=== PATIENT | female | born 1955 | race Caucasian/White ===

== ENCOUNTER 2017-04-01 14:20 | Emergency (ER) | payer SELFPAY ==
[2017-04-01 14:28] VITALS: BP 159/101; BMI 36.5
[2017-04-01] MEDS ORDERED: ZOFRAN INJ 4 MG VIAL ONE (15:42)
[2017-04-01] MEDS ORDERED: ZOFRAN INJ 4 MG VIAL IVP ONE (15:51)
[2017-04-01] MEDS ORDERED: LEVSIN/MAALOX/LIDOC VISC PO ONE (15:51)
[2017-04-01] MEDS ORDERED: LEVSIN/MAALOX/LIDOC VISC ONE (15:52)
--- NOTE | 2017-04-01 15:54 | DR.GENAD ---
HPI - PCP Primary Care Physician: NFD - Complaint/Symptoms Chief Complaint Doctors Comments: Patient admits to nausea, vomiting and diarrhea for one day. She denies fever. Chief Complaint:: PT C/O EPIGASTRIC PAIN WITH N/V/D, FEVER AND ABD DISTENTION. PT STATES HER SYMPOTOMS STARTED LAST NIGHT. - Source History Provided: Patient - Mode of Arrival Mode of Arrival: Ambulatory - Timing Onset of Chief Complaint: 03/31/17 PMH - PMH Past Medical History: Yes Past Medical History: COPD, Diabetes, Hypertension Past Surgical History: Yes Surgical History: - Family History History of Family Medical Conditions: Yes Family Medical History: Diabetes Mellitus, Cancer - Social History Does patient currently use any type of tobacco product: No Have you used tobacco products in the last 12 months: No Type of Tobacco Use: None Does any household member use tobacco: No Alcohol Use: None Do you use any recreational Drugs:: No Lives With: Spouse, Family Lives Where: Home - infectious screening In the last 2 months have you had wt loss of >10#?: NO Have you had fever, night sweats or hemotysis?: No Have you traveled outside the country in the last 6 months?: No Isolation: Standard ROS - Review of Systems Constitutional: No Symptoms Reported Eyes: No Symptoms Reported ENTM: No Symptoms Reported Respiratoy: No Symptoms Reported Cardiovascular: No Symptoms Reported Gastrointestinal/Abdominal: No Symptoms Reported Genitourinary: No Symptoms Reported Neurological: No Symptoms Reported Musculoskeletal: No Symptoms Reported Integumentary: No Symptoms Reported Hematologic/Lymphatic: No Symptoms Reported Endocrine: No Symptoms Reported Psychiatric: No Symptoms Reported All Other Systems: Reviewed and Negative PE - Vital Signs Vitals: Temperature 98.3 F Pulse Rate 72 Respiratory Rate 18 Blood Pressure [Right Arm] 133/60 Blood Pressure 159/101 O2 Sat by Pulse Oximetry 99 - General Limitations: No Limitations General Appearance: Alert, In No Apparent Distress, Anxious - Head Head Exam: Normal Inspection, Atraumatic - Eyes Eye exam: Normal Appearance, PERRL, EOMI - ENT ENT Exam: Normal Exam, Normal Oropharynx External Ear Exam: Normal External Inspection TM/Canal Exam: Bilateral Normal Nose Exam: Normal Nose Exam Mouth Exam: Normal Inspection Throat Exam: Normal Inspection - Neck Neck Exam: Normal Inspection, Trachea Midline - Chest Chest Inspection: Normal Inspection - Respiratory Respiratory Exam: Normal Lung Sounds Bilat Respiratory Exam: Bilateral Clear to Auscultation - Cardiovascular Cardiovascular Exam: Regular Rate, Normal Rhythm - Abdominal Exam Abdominal Exam: Normal Inspection, Normal Bowel Sounds Abdominal Tenderness: negative: RUQ, RLQ, LUQ, LLQ, Epigastrium, Suprapubic, Diffuse, Mild, Moderate, Severe, Other - Extremities Extremities Exam: Normal Inspection, Full ROM - Back Back Exam: Normal Inspection, Full ROM - Neurologic Neurological Exam: Alert, Oriented X3, CN II-XII Intact - Psychiatric Psychiatric Exam: Normal Affect - Skin Skin Exam: Warm, Dry, Intact Course - Reevaluation 1st: Improved ROR - Labs Reviewed Laboratory Results Reviewed?: Yes (H Pylori positive) Result Diagrams: 04/01/17 15:55 04/01/17 15:55 Laboratory: WBC 12.0 X10^3/uL (3.6-10.0) H 04/01/17 15:55 RBC 4.83 X10^6/uL (3.5-5.4) 04/01/17 15:55 Hgb 14.5 g/dL (12.0-16.0) 04/01/17 15:55 Hct 43.1 % (36.0-47.0) 04/01/17 15:55 MCV 89.4 fL (80.0-100.0) 04/01/17 15:55 MCH 30.0 pg (27.0-34.0) 04/01/17 15:55 MCHC 33.5 g/dL (33.0-35.0) 04/01/17 15:55 RDW 13.3 % (11.6-16.5) 04/01/17 15:55 Plt Count 246 X10^3/uL (150.0-450.0) 04/01/17 15:55 MPV 9.9 fL (7.4-11.0) 04/01/17 15:55 Neut % 78.7 % (42.0-75.0) H 04/01/17 15:55 Lymph % 13.3 % (21.0-51.0) L 04/01/17 15:55 Sutton % 7.1 % (0.0-13.0) 04/01/17 15:55 Eos % 0.2 % (0.9-2.9) L 04/01/17 15:55 Baso % 0.7 % (0.2-1.0) 04/01/17 15:55 Neut # 9.4 x10^3/uL (2.2-4.8) H 04/01/17 15:55 Lymph # 1.6 X10^3/uL (1.3-2.9) 04/01/17 15:55 Sutton # 0.8 x10^3/uL (0.3-0.8) 04/01/17 15:55 Eos # 0.0 x10^3/uL (0.0-0.2) 04/01/17 15:55 Baso # 0.1 X10^3/uL (0.0-0.1) 04/01/17 15:55 Absolute Nucleated RBC 0.0 /100WBC 04/01/17 15:55 Sodium 139 mmol/L (136-145) 04/01/17 15:55 Corrected Sodium TNP 04/01/17 15:55 Potassium 4.1 mmol/L (3.5-5.1) 04/01/17 15:55 Chloride 104 mmol/L (98-107) 04/01/17 15:55 Carbon Dioxide 28.8 mmol/L (21-32) 04/01/17 15:55 BUN 11 mg/dL (7-18) 04/01/17 15:55 Creatinine 0.89 mg/dL (0.55-1.02) 04/01/17 15:55 Est GFR (MDRD) Af Amer > 60 (>60) 04/01/17 15:55 Est GFR (MDRD) Non-Af > 60 (>60) 04/01/17 15:55 Glucose 103 mg/dL (65-99) H 04/01/17 15:55 Calcium 9.6 mg/dL (8.5-10.1) 04/01/17 15:55 Corrected Calcium TNP 04/01/17 15:55 Total Bilirubin 0.60 mg/dL (0.2-1.0) 04/01/17 15:55 AST 20 Units/L (15-37) 04/01/17 15:55 ALT 25 Units/L (12-78) 04/01/17 15:55 Alkaline Phosphatase 87 Units/L (46-116) 04/01/17 15:55 C-Reactive Protein 6.30 mg/L (0-3.0) H 04/01/17 15:55 Total Protein 7.9 g/dL (6.4-8.2) 04/01/17 15:55 Albumin 3.7 g/dL (3.4-5.0) 04/01/17 15:55 Globulin 4.2 g/dL (2.5-4.5) 04/01/17 15:55 Albumin/Globulin Ratio 0.9 Ratio (1.1-2.1) L 04/01/17 15:55 H. pylori IgG Antibody Positive (NEGATIVE) A 04/01/17 15:55 - XRAY XRAY Interpreted by: Radiologist (Acute Abdom: Chest no acute pathologty; Abdom : no acute pathology) - Diagnosis Discharge Problem: Helicobacter pylori gastritis - Discharge Plan Condition: Stable - Follow ups/Referrals Follow ups/Referrals: NFD,None [Primary Care Provider] - 3 days - Instructions
[2017-04-01 16:11] LABS: BASOPHILS # (AUTO) 0.1 X10^3/uL (0.0-0.1); BASOPHILS % (AUTO) 0.7 % (0.2-1.0); EOSINOPHILS % (AUTO) 0.2 % (0.9-2.9); HEMATOCRIT 43.1 % (36.0-47.0); HEMOGLOBIN 14.5 g/dL (12.0-16.0); LYMPHOCYTES # (AUTO) 1.6 X10^3/uL (1.3-2.9); LYMPHOCYTES % (AUTO) 13.3 % (21.0-51.0); MEAN CORPUSCULAR HGB CONC 33.5 g/dL (33.0-35.0); MEAN CORPUSCULAR VOLUME 89.4 fL (80.0-100.0); MEAN PLATELET VOLUME 9.9 fL (7.4-11.0); MONOCYTES # (AUTO) 0.8 x10^3/uL (0.3-0.8); MONOCYTES % (AUTO) 7.1 % (0.0-13.0); NEUTROPHILS # (AUTO) 9.4 x10^3/uL (2.2-4.8); NEUTROPHILS % (AUTO) 78.7 % (42.0-75.0); PLATELET COUNT 246 X10^3/uL (150.0-450.0); RED BLOOD COUNT 4.83 X10^6/uL (3.5-5.4); RED CELL DISTRIBUTION WIDTH 13.3 % (11.6-16.5)
--- NOTE | 2017-04-01 16:21 | RAD ---
HISTORY: Abdominal pain Study: Acute abdominal series Comparison: November 14, 2015 Findings: The trachea is midline. The cardiac silhouette is unremarkable. The lungs are clear without focal i nfiltrate or effusion. . No pneumoperitoneum is identified.. Flat plate and upright evaluation of the abdomen demonstrates a normal bowel gas pattern. No patholo gical soft tissue mass or calcification can be observed. The bony structures are grossly intact. IMPRESSION: 1. No acute cardiopulmonary disease. 2. No evidence for acute abdominal pathology identified. Reported By:
[2017-04-01 16:22] LABS: ALANINE AMINOTRANSFERASE 25 Units/L (12-78); ALBUMIN 3.7 g/dL (3.4-5.0); ALKALINE PHOSPHATASE 87 Units/L (46-116); ASPARTATE AMINO TRANSFERASE 20 Units/L (15-37); BLOOD UREA NITROGEN 11 mg/dL (7-18); CALCIUM 9.6 mg/dL (8.5-10.1); CARBON DIOXIDE 28.8 mmol/L (21-32); CHLORIDE 104 mmol/L (98-107); CREATININE 0.89 mg/dL (0.55-1.02); SODIUM 139 mmol/L (136-145); TOTAL PROTEIN 7.9 g/dL (6.4-8.2); eGFR BLACK RACES > 60 (>60); eGFR NON BLACK RACES > 60 (>60)
== END 2017-04-01 17:30 | disposition home or self-care (01) ==
LOC: ER 14:31
DX: B96.81 Helicobacter pylori [H. pylori] as the cause of diseases classified elsewhere (principal); R10.31 Right lower quadrant pain
CPT/HCPCS: 36415; 74022; 80053; 85025; 86140; 86677; 96365; 96374; 99282; 99283; A4222; J2405